=== PATIENT | female | born 1945 | race Caucasian/White ===

== ENCOUNTER 2018-05-05 14:47 | Outpatient (CLI) | payer MEDICARE | END 2018-05-05 14:48 | disposition home or self-care (01) | LOC: BICMAMMO 14:47 | PROVIDERS: ATTEND Obstetrics & Gynecology | DX: Z12.31 Encounter for screening mammogram for malignant neoplasm of breast (principal); Z80.3 Family history of malignant neoplasm of breast | CPT/HCPCS: 77063; 77067 ==

== ENCOUNTER 2024-05-12 12:11 | Outpatient (CLI) | payer MEDICARE | END 2024-05-12 12:12 | disposition home or self-care (01) | LOC: RAD 12:11 | PROVIDERS: ATTEND Internal Medicine | DX: R06.00 Dyspnea, unspecified (principal); J98.11 Atelectasis; J98.4 Other disorders of lung | CPT/HCPCS: 71046 ==

== ENCOUNTER 2024-07-14 09:44 | Emergency (ER) | payer MEDICARE ==
[2024-07-14] MEDS ORDERED: Ipratropium Bromide 2.5 ml Neb ONE ×2 (10:56→12:12)
[2024-07-14] MEDS ORDERED: Albuterol 2.5 MG (3 mL) NEB ONE ×2 (10:56→12:13)
[2024-07-14 11:24] LABS: #Basophils 0.05 10x3/uL (0.0-0.2); %Eosinophils 17.1 % (0.0-10.0); %Lymphocytes 29.1 % (21.0-51.0); %Monocytes 7.7 % (0.0-10.0); %Neutrophils 44.9 % (42.0-75.0); Hematocrit 44.9 % (36.0-47.0); Hemoglobin 15.3 g/dL (12.0-16.0); Mean Corpuscular HGB CONC 34.1 g/dL (32.0-36.0); Mean Corpuscular Hemoglobin 30.2 pg (27.0-31.0); Mean Corpuscular Volume 88.7 fL (78.0-98.0); Mean Platelet Volume 9.9 fL (7.4-10.4); Platelet Count 188 10x3/uL (130-400); RBC Distribution Width 12.5 % (11.5-14.5); Red Blood Cell (RBC) Count 5.06 mill/uL (4.20-5.40)
[2024-07-14 11:34] LABS: ALT (SGPT) 17 U/L (8-55); AST (SGOT) 20 U/L (5-34); Albumin 4.2 g/dL (3.4-4.8); Alkaline Phosphatase 78 U/L (40-110); Anion Gap 14 mmol/L (10-20); BUN (Urea Nitrogen) 12 mg/dL (9.8-20.1); Bilirubin, Total 0.8 mg/dL (0.2-1.2); Calc. Creatinine Clearance 0 mL/min (70-130); Calcium 9.6 mg/dL (7.8-10.44); Carbon Dioxide 22 mmol/L (23-31); Chloride 107 mmol/L (98-107); Estimated GFR 83; Globulin 3.4 g/dL (2.4-3.5); Glucose 100 mg/dL (83-110); Protein, Total 7.6 g/dL (5.8-8.1); Sodium 139 mmol/L (136-145)
[2024-07-14 11:37] LABS: Troponin I Less than 0.010 ng/mL (< 0.028)
[2024-07-14] MEDS ORDERED: predniSONE 20 MG TAB ONE (12:12)
== END 2024-07-14 12:23 | disposition home or self-care (01) ==
LOC: ERS 09:44
DX: J98.01 Acute bronchospasm (principal)
CPT/HCPCS: 36415; 71046; 80053; 83880; 84484; 85025; 93005; 94640; J7512; J7611; J7644

== ENCOUNTER 2024-07-14 14:09 | Observation (INO) | payer MEDICARE ==
[2024-07-14 17:40] VITALS: BMI 26.1
[2024-07-14] MEDS ORDERED: Ondansetron ODT 4 MG TAB PO PRN (19:10)
[2024-07-14] MEDS ORDERED: Senokot S 8.6-50 MG TAB PO PRN (19:10)
[2024-07-14] MEDS ORDERED: Acetaminophen 325 MG TAB PO PRN (19:10)
[2024-07-14] MEDS ORDERED: Ipratropium/Albuterol 3 ML NEB NEB PRN (19:15)
[2024-07-14] MEDS: Ezetimibe 10 MG TAB PO SCH (20:36)
[2024-07-14 20:40] VITALS: TEMP 97.8
[2024-07-14 20:43] VITALS: BP 176/74
[2024-07-15] MEDS ORDERED: Pantoprazole DR 40 MG TAB PO SCH (09:00)
== END 2024-07-15 17:25 | disposition home or self-care (01) ==
LOC: ERS 14:09 → 2NO 15:04
PROVIDERS: ADMIT Internal Medicine; ATTEND Internal Medicine
PROC: B24BZZZ Ultrasonography of Heart with Aorta (ICD-10-PCS; principal; 2024-07-15)
DX: R55 Syncope and collapse (principal); R06.02 Shortness of breath; E78.5 Hyperlipidemia, unspecified; K21.9 Gastro-esophageal reflux disease without esophagitis; Z79.899 Other long term (current) drug therapy; J98.01 Acute bronchospasm
CPT/HCPCS: 70450; 71046; 71275; 80053; 83880; 84484; 85025; 93005; 93306; 94640; 99285; J7644; 36415; G0378; J7512; J7611

== ENCOUNTER 2024-09-14 14:14 | Outpatient (CLI) | payer MEDICARE, OTHER | END 2024-09-14 14:15 | disposition home or self-care (01) | LOC: RAD 14:14 | PROVIDERS: ATTEND Internal Medicine | DX: J44.9 Chronic obstructive pulmonary disease, unspecified (principal) | CPT/HCPCS: 71046 ==

== ENCOUNTER 2025-05-24 13:01 | Outpatient (CLI) | payer MEDICARE | END 2025-05-24 13:02 | disposition home or self-care (01) | LOC: RAD 13:01 | PROVIDERS: ATTEND Internal Medicine | DX: J44.9 Chronic obstructive pulmonary disease, unspecified (principal) | CPT/HCPCS: 71046 ==